=== PATIENT | male | born 1970 | race African-American/Black ===

== ENCOUNTER 2017-12-19 11:23 | Emergency (ER) | END 2017-12-19 14:22 | disposition home or self-care (01) ==

== ENCOUNTER 2018-07-26 12:58 | Day surgery (SDC) | payer MEDICARE, OTHER ==
[2018-07-26] VITALS (27 sets, daily range): BP systolic 119–163; BP diastolic 57–95; PULSE 74–96; RESP 11–35; Ht 180.3 cm; Wt 88.3 kg
[~2018-07-26] VITALS: Ht 180.3 cm; Wt 88.3 kg
[~2018-07-26 12:58] MED LIST: ISOS30TA67 PO
[2018-07-26] MEDS ORDERED: FAMOTIDINE 20 MG TAB PO SCH (13:00)
[2018-07-26] MEDS ORDERED: SOD CHLORIDE 0.45% 1,000 ML IV SCH (13:00)
[2018-07-26] MEDS ORDERED: DIAZEPAM 5 MG TAB PO SCH (13:00)
[2018-07-26] MEDS ORDERED: DIPHENHYDRAMINE 50 MG CAP PO SCH (13:00)
[2018-07-26] MEDS ORDERED: ASPI81TA52 PO (13:44)
[2018-07-26] MEDS ORDERED: HEPARIN 1000 UNITS/ML 10 ML INJ ONE (13:50)
[2018-07-26] MEDS ORDERED: LIDOCAINE 1% (MDV) 20 ML INJ ONE (13:50)
[2018-07-26] MEDS ORDERED: IODIXANOL LOCM 100 ML BTL ONE (13:50)
[2018-07-26] MEDS ORDERED: MIDAZOLAM 1 MG/ML 2 ML INJ ONE (13:51)
[2018-07-26] MEDS ORDERED: VERAPAMIL 5 MG INJ ONE (13:51)
[2018-07-26] MEDS ORDERED: NITROGLYCERIN (IC) 100 MCG/ML INJ ONE (13:51)
[2018-07-26] MEDS ORDERED: FENTAnyl 50 MCG/ML VIAL ONE (13:51)
[2018-07-26] MEDS ORDERED: SOD CHLORIDE 0.9% 1,000 ML IV SCH (14:52)
[2018-07-26] MEDS ORDERED: ACETAMINOPHEN 325 MG TAB PO PRN (15:00)
[2018-07-26] MEDS ORDERED: morphine 4 MG/ML VIAL IV PRN (15:00)
--- NOTE | 2018-07-26 15:03 | SIPON ---
Date/Time of Note Date/Time of Note DATE: 07/26/18 TIME: 15:01 Operative Report Preoperative Diagnosis chest pain Postoperative Diagnosis 1.non-obstructive cad Operation/Procedure Performed 1.[facility] Surgeon see signature line museum assistant 1.DANNY Anesthesia: moderate sedation Estimated blood loss: minimal Transfusion Required none Specimen NONE Grafts/Implants none Complications none BENJA KILLIAN Jul 26, 2018 15:03
--- NOTE | 2018-07-26 21:20 | CARRPT ---
DATE OF PROCEDURE: 07/26/2018 TYPE OF PROCEDURE: 1. Left heart catheterization. 2. Coronary angiography. 3. Measurement of left ventricular end-diastolic pressure. ATTENDING PHYSICIAN: Benja Garcia M.D. REFERRING PHYSICIAN: Self-referred. INDICATION: Positive troponin consistent with non-ST elevation myocardial infarction at an outside hospital for which patient signed out against medical advice. TYPE OF ANESTHESIA: Conscious local. BRIEF HISTORY: Mr. Daniel is a 39-year-old male with history of hypertension, ongoing tobacco usage, who presented with complaints of substernal chest pain and due to an outside hospital chest pain and ruled in for [id number] myocardial infarction. The patient signed an AMA and now presents for left heart catheterization date assess possibility of significant currently lives symptoms of chest pain and positive cardiac enzymes findings. PROCEDURE: After informed consent was obtained, the patient was brought to the [facility] cardiac catheterization lab where his right radial area was prepped and draped in usual fashion. Lidocaine 2% was infiltrated to the right radial area in order to achieve adequate anesthesia. With modified Seldinger technique, the radial artery was cannulated and a 6-Slovenian JL3.5 catheter was used to cannulate the left main coronary ostium. With contrast injection, multiple views of the left coronary system obtained. JL3.5 was removed over a guidewire and a JR4 was used to cannulate the right coronary arterial ostium. With contrast injection, multiple views of the right coronary was obtained. JR4 was removed over a guidewire and a 6-Slovenian pigtail was passed down the ascending aorta placed in LV. LVEDP was measured, 20 mL of contrast were injected opacifying the left ventricle and pull back pressures valve to assess for significant gradient, which there was not removed. Subsequently, at this time, the patient's sheath was removed, a TR band applied. This completed the procedure. There were no noted complications. FINDINGS: 1. Coronary angiography: Left main with a distal 20% to 30% stenosis. A circumflex proximally is a 4 mm vessel and has some tortuosity, but may be a 20% proximal stenosis. The remainder of the circ is free of significant focal stenoses. There is a high branching obtuse marginal with an ostial 30% to 40% stenosis and a mid-branching obtuse marginal 3 mm, no significant focal stenoses. There exists a ramus branch 3 mm with no significant focal stenoses.The LAD proximally is a 3.5 mm vessel and shortly after its takeoff has a 20% stenosis. The remainder of LAD, thereafter, is free of significant focal stenoses. The apex with a 20% distal stenosis. There are several mid branching diagonals, approximately 2 mm each, with no significant focal stenoses. Additionally, the patient's circumflex is a dominant vessel, so it gives off a left-sided PDA, 2.5 mm, no significant focal stenoses. 2. The right coronary artery proximally is a 3.5 mm vessel, has a mild irregularity of approximately 20% to 30% in its proximal portion and then a tubular stenosis in its mid portion. 3. Up to approximately 30%, it is a codominant vessel and, therefore, it gives off a small right-sided PDA, 2 mm, with no significant focal stenoses and a posterolateral branch sub 2 mm with mild irregularities of 10% to 20%. LEFT VENTRICULOGRAM: Revealed a preserved left ventricular ejection fraction of 60% to 65%, left ventricular end-diastolic pressure 16 to 18, no significant aortic stenosis by gradient. TOTAL FLUOROSCOPY TIME: 6.1 minutes. TOTAL CONTRAST: 98 mL. IMPRESSION: 1. Mild to moderate nonobstructive coronary artery disease. 2. Preserved left ventricular systolic function. 3. High normal left heart filling pressures. 4. No significant aortic stenosis by gradient. RECOMMENDATIONS: In light of procedure findings at this time would: 1. Maximize medical management. 2. Aggressive risk factor reduction. 3. The patient will be readmitted to same-day surgery center for post-cath observation, continued management of symptoms with probable discharge later this afternoon. 4. The patient is scheduled for followup in my office to take place at which time we discussed the results of the procedure further with him and assure that he has had no post-catheterization access complications. Dictated By: BENJA TEMPLETON/LYLY Conf#: [id number] DID#: [id number] JULIETA
--- NOTE | 2018-07-28 19:58 | RADRPT ---
Vent Rate: 86 bpm RR Interval: 0 msec [place] Interval: 144 msec QRS Duration: 88 msec QT Interval: 404 msec QTC Interval: 483 msec P-R-T [place]: 55 - 3 - 57 degrees Normal sinus rhythm Possible Left atrial enlargement Left ventricular hypertrophy Prolonged QT Abnormal ECG Electronically Signed By: Jonathon Garcia [id number]
== END 2018-07-26 20:00 | disposition home or self-care (01) ==
LOC: SDS 12:58
PROVIDERS: ATTEND Internal Medicine
DX: I25.10 Atherosclerotic heart disease of native coronary artery without angina pectoris (principal); I10 Essential (primary) hypertension; E78.00 Pure hypercholesterolemia, unspecified
CPT/HCPCS: 71045; 80048; 80061; 85025; 85610; 85730; 93005; 93458; C1887; J1644; J2250; J3010; Q9967